=== PATIENT | female | born 1975 | race African-American/Black ===

== ENCOUNTER 2016-05-20 17:50 | Emergency (ER) | payer OTHER ==
[~2016-05-20 17:50] MED LIST: ALPRAZOLAM0.5 M3; BENTYL20 M1 PO; BUSPIRONE HCL10 M1; CLONAZEPAM0.5 MG; DECADRON2 MG PO; FIORICET 325 MG1 TAB PO; IBUPROFEN800 M1 PO; IBUPROFEN800 MG PO; IMITREX20 M1 NAS; IMITREX6 MG/0.52; IRON SUPPLEMEN325 MG PO; LEVSIN-SL0.125 MG SL; MIRENA1 EACH; NAPROXEN SODIU550 M1 PO; NEXIUM 40MG40 MG PO; ONDANSETRON HCL4 MG PO; ONDANSETRON HYDR4 MG PO; OXYCODONE HCL10 M2 PO; OXYCODONE HCL15 M1 PO; OXYCODONE HCL20 M1 PO; OXYCONTIN15 M1 PO; OXYCONTIN20 M1 PO; PERCOCET 325 MG1 TA2 PO; PHENERGAN25 M2 PO; PHENERGAN25 MG PR; POLYETHYLENE G255 GM PO; REGLAN10 M1 PO; REGLAN10 MG PO; TOPIRAMATE25 MG PO; ULTRAM(MONOGRAP50 MG PO; VALIUM5 M1 PO; VICODIN 300 MG-1 TAB PO; ZOFRAN 4 MG TABL4 MG PO
[2016-05-20 18:11] VITALS: BP 112/75
--- NOTE | 2016-05-20 19:08 | ED HEADACHE COMPLAINT ---
History of Present Illness General Chief Complaint: General Adult Stated Complaint: BILLS, LEFT SIDED EAR AND JAW PAIN, X 5 DAYS Source: patient Exam Limitations: no limitations Vital Signs & Intake/Output Vital Signs & Intake/Output Vital Signs Date Time Temp Pulse Resp B/P Pulse O2 O2 Flow FiO2 Ox Delivery Rate 05/20 1908 97.3 05/20 1811 93 20 112/75 96 Room Air ED Intake and Output 05/21 0000 05/20 1200 Intake Total 50 Output Total Balance 50 Intake, Oral 50 Allergies Coded Allergies: famotidine (Intermediate, HEART RACING, HIVES 08/10/15) Reconcile Medications Ferrous Sulfate 325 MG (65 MG IRON) TABLET 1 TAB PO DAILY SUPPLEMENT ( Reported) Gabapentin (Neurontin) 300 MG CAPSULE 2 CAP PO TID NEURALGIA Ibuprofen 800 MG TABLET 1 TAB PO TID PRN PAIN (Reported) Levonorgestrel (Mirena) 1 EACH IUD CONTROL (Reported) Methylprednisolone. (Medrol) 4 MG TAB.DS.PK 1 DP PO AD MIGRAINE 6 on day 1 then reduce by one tablet daily until gone Oxycodone HCl 15 MG TABLET 1 TAB PO TID PRN PAIN (Reported) Oxycodone HCl (Oxycontin) 20 MG TAB.ER.12H 1 TAB PO BID PAIN (Reported) Polyethylene Glycol 3350 255 GM POWDER 17 GM PO DAILY GI (Reported) Triage Note: PER PT L EAR PAIN SINCE SUNDAY NOW WITH BILLS TO L ORIENTAL ORTHODOX X 22 DAYS. CONSISTENT. TOOK SCHEDULED OXYCODONE FOR CHRONIC BILLS AT 12 NOON. WITHOUT EFFECT. LMP ON [facility] Triage Nurses Notes Reviewed? yes Onset: Gradual Duration: day(s):, waxing and waning Timing: recent history Quality/Severity: moderate Head Injury Location: left sided of head Modifying Factors: Improves With: rest. Worsens With: movement. Associated Symptoms: nausea/vomiting : No Patient currently breastfeeds: No HPI: 41-year-old woman presents with left-sided headache consistent with her prior migraines. She's had these symptoms for the past 5 days. She is tried her usual symptomatic measures without success. She has no fever chills. She notes mild nausea without vomiting. She has no focal weakness. She is otherwise well and has no other concerns. Past History Travel History Traveled to [place] past 21 day No Medical History Any Pertinent Medical History? 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 No Review of Systems Review of Systems Constitutional: Reports: no symptoms. Eyes: Reports: no symptoms. Ears, Nose, Throat, Mouth: Reports: no symptoms. Respiratory: Reports: no symptoms. Cardiovascular: Reports: no symptoms. Gastrointestinal/Abdominal: Reports: no symptoms. Genitourinary: Reports: no symptoms. Musculoskeletal: Reports: no symptoms. Skin: Reports: no symptoms. Neurological/Psychological: Reports: no symptoms. Hematologic/Endocrine: Reports: no symptoms. Endocrine: Reports: no symptoms. Immunologic/Allergic: Reports: no symptoms. All Other Systems: Reviewed and Negative Physical Exam Physical Exam General Appearance: well developed/nourished Head: atraumatic, normal appearance, mild tenderness to palpation along the left scalp musculature Eyes: Bilateral: normal appearance, PERRL, EOMI. Ears, Nose, Throat: normal pharynx, normal ENT inspection Neck: normal inspection, supple, full range of motion Respiratory: normal breath sounds, chest non-tender, no respiratory distress, quiet respiration, lungs clear Cardiovascular: regular rate/rhythm Gastrointestinal: normal bowel sounds, soft, non-tender, no organomegaly Back: normal inspection Extremities: normal inspection Psychiatric: awake, alert, oriented x 3 Cranial Nerves: normal hearing, normal speech, PERRL Coordination/Gait: normal gait Motor/Sensory: no motor/sensory deficits Reflexes: 1+: bicep (R), bicep (L). Skin: intact, normal color, warm/dry Core Measures Severe Sepsis Present: No Septic Shock Present: No Progress Differential Diagnosis: cluster BILLS, migraine BILLS, musculoskeletal pain, tension BILLS Plan of Care: pt given supportive medications and will return if not better. Departure Departure Disposition: HOME OR SELF CARE Condition: Stable Clinical Impression Primary Impression: Migraine headache Referrals: PATIENT HAS NO PRIMARY CARE DR (PCP/Family) Departure Forms: Customer Survey General Discharge Information Prescriptions: Current Visit Scripts Methylprednisolone. (Medrol) 1 DP PO AD #1 DP 6 on day 1 then reduce by one tablet daily until gone Gabapentin (Neurontin) 2 CAP PO TID #90 CAP
[2016-05-20] MEDS ORDERED: MEDROL4 M2 PO (19:19)
[2016-05-20] MEDS ORDERED: NEURONTIN300 M1 PO (19:19)
[2016-05-20] MEDS ORDERED: FERROUS SULFAT325 M3 PO (19:36)
== END 2016-05-20 19:44 ==
LOC: ERH 17:50
DX: G43.909 Migraine, unspecified, not intractable, without status migrainosus (principal)
CPT/HCPCS: 96372; J1885

== ENCOUNTER 2016-07-09 20:41 | Emergency (ER) | payer OTHER ==
[~2016-07-09] VITALS: Ht 154.9 cm; Wt 88.5 kg
[~2016-07-09 20:41] MED LIST changes: +FERROUS SULFAT325 M3 PO; +MEDROL4 M2 PO; +NEURONTIN300 M1 PO
[2016-07-09 21:44] LABS: ABSOLUTE BASOPHIL COUNT 0 /CUMM (0.0-0.2); ABSOLUTE EOSINOPHIL COUNT 0 /CUMM (0.0-0.7); ABSOLUTE GRANULOCYTE CT 9.9 /CUMM (1.4-6.5); ABSOLUTE MONOCYTE COUNT 0.1 /CUMM (0.10-0.60); BASOPHIL % 0.1 % (0.0-2.0); EOSINOPHIL % 0 % (0-5); GRANULOCYTE % 89.6 % (42.2-75.2); HEMATOCRIT 34.4 % (37-47); MEAN CORPUSCULAR HGB 25.1 PG (27.0-31.0); MEAN CORPUSCULAR HGB CONC 31.8 G/DL (33.0-37.0); MEAN CORPUSCULAR VOLUME 78.9 FL (81.0-99.0); MEAN PLATELET VOLUME 9.2 FL (7.4-10.4); PLATELET COUNT 271 /CUMM (130-400); RBC DISTRIBUTION WIDTH 14.8 % (11.5-14.5); RED BLOOD CELL CT 4.36 /CUMM (4.20-5.40)
--- NOTE | 2016-07-09 21:48 | ED GENERAL ADULT ---
History of Present Illness General Chief Complaint: General Adult Stated Complaint: BILLS, FACIAL PAIN, ABD. PAIN,VOMITING SINCE YEST Source: patient, family Exam Limitations: no limitations Vital Signs & Intake/Output Vital Signs & Intake/Output Vital Signs Date Time Temp Pulse Resp B/P B/P Pulse O2 O2 Flow FiO2 Mean Ox Delivery Rate 07/10 0009 97.1 89 18 132/86 98 Room Air 07/09 2140 99.5 82 20 138/79 100 Room Air ED Intake and Output 07/10 0000 07/09 1200 Intake Total Output Total Balance Patient 195 lb Weight Weight Reported by Patient Measurement Method Allergies Coded Allergies: famotidine (Intermediate, HEART RACING, HIVES 07/09/16) Reconcile Medications Ferrous Sulfate 325 MG (65 MG IRON) TABLET 1 TAB PO DAILY SUPPLEMENT ( Reported) Gabapentin (Neurontin) 300 MG CAPSULE 2 CAP PO TID NEURALGIA Ibuprofen 800 MG TABLET 1 TAB PO TID PRN PAIN (Reported) Levonorgestrel (Mirena) 1 EACH IUD CONTROL (Reported) Methylprednisolone. (Medrol) 4 MG TAB.DS.PK 1 DP PO AD MIGRAINE 6 on day 1 then reduce by one tablet daily until gone Ondansetron (Zofran Odt) 4 MG TAB.RAPDIS 1 TAB SL TID PRN nausea Oxycodone HCl 15 MG TABLET 1 TAB PO TID PRN PAIN (Reported) Oxycodone HCl (Oxycontin) 20 MG TAB.ER.12H 1 TAB PO BID PAIN (Reported) Oxycodone HCl 15 MG TABLET 1 TAB PO 4XDP PRN pain four... [id number] Polyethylene Glycol 3350 255 GM POWDER 17 GM PO DAILY GI (Reported) Triage Note: TRIAGE: PT TO ER C/C PAIN TO HEAD, FACE AND ABD WELL N/V. ONSET YESTERDAY. STATES HX OF MIGRAINES AND TMJ, TAKES DAILY PAIN MEDS FOR SAME AND HAS BEEN UNABLE TO KEEP THE PAIN MEDS DOWN SO QUESTIONS IF SOME OF THE S/S MIGHT BE WITHDRAWAL RELATED. PT HAD BLOOD WORK DONE IN [place] PRIOR TO TRIAGE. PT ACTIVELY V[facility]ITING IN [facility] AT PRESENT. DR HAAS OVER TO EVALUATE PATIENT. Triage Nurses Notes Reviewed? yes Onset: Abrupt Duration: day(s):, waxing and waning Timing: recent history Injury Environment: home Severity: moderate Modifying Factors: Improves With: rest. Associated Symptoms: head ache, left facial pain : No Patient currently breastfeeds: No HPI: 41yo, h/o chronic pain, headache, right sided numbness, for the past 2 days, presents with right sided headache, "and then I started vomiting and then I couldn't keep my meds down." She notes that her headache is similar to her prior episodes of headache pain, which is associated with nausea and vomiting. She notes no diarrhea, chills, dyspnea, rashes, fever, sinus congestion, ear pain. Past History Travel History Traveled to [place] past 21 day No Medical History Any Pertinent Medical History? 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 No Review of Systems Review of Systems Constitutional: Reports: no symptoms. EENTM: Reports: no symptoms. Respiratory: Reports: no symptoms. Cardiovascular: Reports: no symptoms. GI: Reports: no symptoms. Genitourinary: Reports: no symptoms. Musculoskeletal: Reports: no symptoms. Skin: Reports: no symptoms. Neurological/Psychological: Reports: no symptoms. Hematologic/Endocrine: Reports: no symptoms. Immunologic/Allergic: Reports: no symptoms. All Other Systems: Reviewed and Negative Physical Exam Physical Exam General Appearance: well developed/nourished, mild distress Head: atraumatic, normal appearance, right sided facial tenderness to light touch, no swelling, no deformity. Eyes: Bilateral: normal appearance, PERRL, EOMI. Ears, Nose, Throat: normal pharynx, normal ENT inspection Neck: normal inspection, supple, full range of motion Respiratory: normal breath sounds, chest non-tender, no respiratory distress, quiet respiration, lungs clear Cardiovascular: regular rate/rhythm Gastrointestinal: normal bowel sounds, soft, non-tender, no organomegaly Back: normal inspection, normal range of motion Extremities: normal inspection Neurologic/Psych: no motor/sensory deficits, awake, alert, oriented x 3 Reflexes: 1+: bicep (R), bicep (L), knee (R), knee (L). Skin: intact, normal color, warm/dry Core Measures ACS in differential dx? No CVA/TIA Diagnosis: No Severe Sepsis Present: No Septic Shock Present: No Progress Differential Diagnoses I considered the following diagnoses in my evaluation of the patient: migraine, viral syndrome, medication withdrawal, vs other. Plan of Care: Orders Procedure Date/time Status LIPASE 07/09 2105 Complete HEPATIC FUNCTION PANEL 07/09 2105 Complete HUMAN BETA HCG SCREEN 07/09 2105 Complete CBC WITHOUT DIFFERENTIAL 07/09 2105 Complete BASIC METABOLIC PANEL 07/09 2105 Complete AMYLASE 07/09 2105 Complete Laboratory Tests 07/09/162134: Anion Gap 14, Estimated GFR > 60, BUN/Creatinine Ratio 15.7, Glucose 117 H, Calcium 9.5, Total Bilirubin 0.4, Direct Bilirubin 0.3, AST 22, ALT 23, Alkaline Phosphatase 92, Total Protein 8.0, Albumin 4.2, Amylase 83, Lipase 141, Total Beta HCG NEGATIVE, CBC w Diff NO MAN DIFF REQ, RBC 4.36, MCV 78.9 L, MCH 25.1 L, RDW 14.8 H, MPV 9.2, Gran % 89.6 H, Lymphocytes % 8.9 L, Monocytes % 1.4 L, Eosinophils % 0, Basophils % 0.1, Absolute Granulocytes 9.9 H, Absolute Lymphocytes 1.0 L, Absolute Monocytes 0.1 L, Absolute Eosinophils 0, Absolute Basophils 0, PUBS MCHC 31.8 L 07/09/162105: Urine Color Cancelled, Urine Clarity Cancelled, Urine pH Cancelled, Ur Specific [place] Cancelled, Urine Protein Cancelled, Urine Ketones Cancelled, Urine Nitrite Cancelled, Urine Bilirubin Cancelled, Urine Urobilinogen Cancelled, Ur Leukocyte Esterase Cancelled, Ur Microscopic Cancelled, Urine Hemoglobin Cancelled, Urine Glucose Cancelled Initial ED EKG: normal axis, normal intervals, normal p-waves, normal QRS complex, normal sinus rhythm Departure Departure Disposition: HOME OR SELF CARE Condition: Stable Clinical Impression Primary Impression: Medication withdrawal Secondary Impressions: Chronic pain, Headache, Vomiting Referrals: PATIENT HAS NO PRIMARY CARE DR (PCP/Family) Departure Forms: Customer Survey General Discharge Information Prescriptions: Current Visit Scripts Oxycodone HCl 1 TAB PO 4XDP PRN pain #4 TAB four... [id number] Ondansetron (Zofran Odt) 1 TAB SL TID PRN nausea #10 TAB Ref 1 Comments 07/10/16, 0:12... pt feeling better after dilaudid 2mg im x 2 along with other supportive medications. pt with benign labs, safe for discharge. Critical Care Note Critical Care Note Critical Care Time: non-applicable
[2016-07-09] MEDS ORDERED: ZOFRAN ODT4 M1 SL (23:54)
[2016-07-09] MEDS ORDERED: OXYCODONE HCL15 M1 PO (23:54)
[2016-07-10 00:09] VITALS: BP 132/86
[2016-07-11] MEDS ORDERED: NEXIUM40 M1 PO (20:24)
[2016-07-11] MEDS ORDERED: OXYCONTIN30 M1 PO (20:24)
[2016-07-11] MEDS ORDERED: SUMATRIPTA6 MG/0.52 INJ (20:25)
== END 2016-07-10 00:15 ==
LOC: ERH 20:41
PROVIDERS: Pediatrics
DX: F19.20 Other psychoactive substance dependence, uncomplicated (principal); G89.29 Other chronic pain; R51 Headache; R11.10 Vomiting, unspecified
CPT/HCPCS: 96372; J2405

== ENCOUNTER 2016-07-11 18:48 | Emergency (ER) | payer OTHER ==
[~2016-07-11 18:48] MED LIST changes: +ZOFRAN ODT4 M1 SL
--- NOTE | 2016-07-11 19:31 | ED HEADACHE COMPLAINT ---
History of Present Illness General Chief Complaint: General Adult Stated Complaint: PT IS HAVING FACE PAIN AND VOMITING Source: patient, family, old records Exam Limitations: no limitations Vital Signs & Intake/Output Vital Signs & Intake/Output Vital Signs Date Time Temp Pulse Resp B/P B/P Pulse O2 O2 Flow FiO2 Mean Ox Delivery Rate 07/11 1857 98.0 88 22 140/100 Allergies Coded Allergies: famotidine (Intermediate, HEART RACING, HIVES 07/09/16) Reconcile Medications Esomeprazole (Nexium) 40 MG CAPSULE.DR 1 CAP PO DAILY GI (Reported) Ferrous Sulfate 325 MG (65 MG IRON) TABLET 1 TAB PO DAILY SUPPLEMENT ( Reported) Gabapentin (Neurontin) 300 MG CAPSULE 2 CAP PO TID NEURALGIA Ibuprofen 800 MG TABLET 1 TAB PO TID PRN PAIN (Reported) Levonorgestrel (Mirena) 1 EACH IUD CONTROL (Reported) Ondansetron (Zofran Odt) 4 MG TAB.RAPDIS 1 TAB SL TID PRN nausea Oxycodone HCl 15 MG TABLET 1 TAB PO TID PRN PAIN (Reported) Oxycodone HCl (Oxycontin) 30 MG TAB.ER.12H 1 TAB PO BID PAIN (Reported) Polyethylene Glycol 3350 255 GM POWDER 17 GM PO DAILY GI (Reported) Sumatriptan Succinate 6 MG/0.5 ML PEN.INJCTR 6 MG INJ AD PRN MIGRAINES ( Reported) Triage Note: PER PT SEEN ON SUNDAY FOR BILLS/FACEPAIN AND VOMITING SEEN BY PMD TODAY GOT NERVE BLOCK BUT STILL VOMITING UNABLE TO TAKE MY CHRONIC PAIN MEDS ? WITHDRAWAL. Triage Nurses Notes Reviewed? yes : No Patient currently breastfeeds: No HPI: Patient suffers from severe, intense migraines. Patient saw her doctor today and had an injection to help her chronic headaches. Patient is still experiencing severe pain to both of her ureters that radiates down into her neck. Patient states that her pain is usually in her head, ears and neck. Patient states that the injection that she got earlier today at her doctor's office helped her headache however she is still experiencing that the ear and neck pain. The pain is throbbing in nature and is constant. It radiates as noted above. The pain is 10 out of 10. Patient states that the only thing that helps is when she comes to the emergency room and gets Dilaudid, Toradol and an antiemetic. Positive nausea vomiting. No photophobia. Past History Travel History Traveled to [place] past 21 day No Medical History Any Pertinent Medical History? 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 No Review of Systems Review of Systems Constitutional: Reports: no symptoms. Eyes: Reports: no symptoms. Ears, Nose, Throat, Mouth: Reports: see HPI, ear pain. Respiratory: Reports: no symptoms. Cardiovascular: Reports: no symptoms. Gastrointestinal/Abdominal: Reports: see HPI, nausea, vomiting. Genitourinary: Reports: no symptoms. Musculoskeletal: Reports: no symptoms. Skin: Reports: no symptoms. Neurological/Psychological: Reports: see HPI. Hematologic/Endocrine: Reports: no symptoms. Endocrine: Reports: no symptoms. Immunologic/Allergic: Reports: no symptoms. All Other Systems: Reviewed and Negative Physical Exam Physical Exam General Appearance: well developed/nourished, alert, awake, moderate distress Head: atraumatic, normal appearance Eyes: Bilateral: PERRL, EOMI. Ears, Nose, Throat: normal pharynx, normal ENT inspection, hearing grossly normal Neck: normal inspection, supple, full range of motion Respiratory: normal breath sounds, chest non-tender, no respiratory distress, lungs clear Cardiovascular: regular rate/rhythm, normal peripheral pulses Gastrointestinal: normal bowel sounds, soft, non-tender, no organomegaly Back: normal inspection, normal range of motion Extremities: normal inspection, normal capillary refill, normal range of motion, no edema Psychiatric: awake, alert, oriented x 3 Cranial Nerves: normal hearing, normal speech, PERRL Coordination/Gait: normal gait Motor/Sensory: no motor/sensory deficits Skin: intact, normal color, warm/dry Core Measures Severe Sepsis Present: No Septic Shock Present: No Progress Differential Diagnosis: migraine BILLS, musculoskeletal pain, tension BILLS Plan of Care: Pain control and antiemetics Departure Departure Disposition: HOME OR SELF CARE Condition: Stable Clinical Impression Primary Impression: Migraine Referrals: PATIENT HAS NO PRIMARY CARE DR (PCP/Family) Additional Instructions: RETURN IF SYMPTOMS WORSEN OR FOR ANY CONCERNS Departure Forms: Customer Survey General Discharge Information
[2016-07-11] MEDS ORDERED: OXYCONTIN30 M1 PO (20:24)
[2016-07-11] MEDS ORDERED: NEXIUM40 M1 PO (20:24)
[2016-07-11] MEDS ORDERED: SUMATRIPTA6 MG/0.52 INJ (20:25)
[2016-07-11 22:00] VITALS: BP 132/87
== END 2016-07-11 22:00 ==
LOC: ERH 18:48
DX: G43.909 Migraine, unspecified, not intractable, without status migrainosus (principal)
CPT/HCPCS: 96374; 96375; 96376; J1885; J2765

== ENCOUNTER 2017-10-20 02:55 | Emergency (ER) | payer OTHER ==
[~2017-10-20] VITALS: Ht 154.9 cm; Wt 85.3 kg
[~2017-10-20 02:55] MED LIST changes: +NEXIUM40 M1 PO; +OXYCODONE HCL20 M2 PO; +OXYCONTIN30 M1 PO; +SUMATRIPTA6 MG/0.52 INJ
--- NOTE | 2017-10-20 03:24 | ED GENERAL ADULT ---
History of Present Illness General Chief Complaint: Abdominal Pain/Flank Pain Stated Complaint: PT C/O ABD PAIN +N/V/D Source: patient Exam Limitations: no limitations Vital Signs & Intake/Output Vital Signs & Intake/Output Vital Signs Date Time Temp Pulse Resp B/P B/P Pulse O2 O2 Flow FiO2 Mean Ox Delivery Rate 10/20 0800 98.3 84 18 128/74 99 Room Air 10/20 0635 70 18 135/63 99 Room Air 10/20 0409 Room Air 10/20 0345 98.2 90 18 138/84 98 Allergies Coded Allergies: famotidine (Intermediate, HEART RACING, HIVES 07/09/16) Reconcile Medications Gabapentin (Neurontin) 300 MG CAPSULE 2 CAP PO TID NEURALGIA Ibuprofen 800 MG TABLET 1 TAB PO TID PRN PAIN (Reported) Levonorgestrel (Mirena) 1 EACH IUD CONTROL (Reported) Ondansetron (Zofran Odt) 4 MG TAB.RAPDIS 1 TAB SL TID PRN nausea Oxycodone HCl 20 MG TABLET 1 TAB PO 4 TIMES/DAY PAIN (Reported) Sumatriptan Succinate 6 MG/0.5 ML PEN.INJCTR 6 MG INJ AD PRN MIGRAINES ( Reported) Triage Nurses Notes Reviewed? yes Onset: Abrupt Duration: hour(s): Timing: recent history HPI: 10/20/17 3:48 AM 42-year-old female presents to the emergency department for abdominal pain and vomiting. She said she recently had a tooth extracted and has a history of migraine headaches and now she's been vomiting and so she can't take her pain medication. Past History Travel History Traveled to [place] past 21 day No Medical History Any Pertinent Medical History? 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 No Review of Systems Review of Systems Constitutional: Denies: fever. EENTM: Denies: visual changes. Respiratory: Denies: short of breath. Cardiovascular: Denies: chest pain. GI: Denies: abdominal pain. Genitourinary: Reports: no symptoms. Musculoskeletal: Reports: no symptoms. Skin: Reports: no symptoms. Neurological/Psychological: Reports: see HPI. Hematologic/Endocrine: Reports: no symptoms. Immunologic/Allergic: Reports: no symptoms. Physical Exam Physical Exam General Appearance: well developed/nourished, alert, awake, anxious, mild distress Head: atraumatic, normal appearance Eyes: Bilateral: normal appearance, PERRL, EOMI. Ears, Nose, Throat: normal pharynx, normal ENT inspection, hearing grossly normal Neck: normal inspection, supple Respiratory: normal breath sounds, chest non-tender, no respiratory distress Cardiovascular: regular rate/rhythm Peripheral Pulses: 4+ radial (R), 4+ radial (L) Gastrointestinal: soft, non-tender Back: normal range of motion Extremities: normal inspection Neurologic/Psych: awake, alert, oriented x 3 Skin: intact, normal color, warm/dry Core Measures ACS in differential dx? No CVA/TIA Diagnosis: No Sepsis Present: No Sepsis Focused Exam Completed? No Progress Differential Diagnoses I considered the following diagnoses in my evaluation of the patient: [Dental abscess, trigeminal neuralgia, migraine, dental caries, tension headache] Plan of Care: Orders Procedure Date/time Status HUMAN BETA HCG SCREEN 10/20 428 Complete COMPREHENSIVE METABOLIC PANEL 10/20 428 Complete CBC WITHOUT DIFFERENTIAL 10/20 428 Complete Laboratory Tests 10/20/17 0520: Anion Gap 10, Estimated GFR > 60, BUN/Creatinine Ratio 15.0, Glucose 130 H, Calcium 9.6, Total Bilirubin 0.4, AST 19, ALT 19, Alkaline Phosphatase 86, Total Protein 8.4 H, Albumin 4.4, Globulin 4.0, Albumin/Globulin Ratio 1.1, Total Beta HCG NEGATIVE 10/20/17 0440: CBC w Diff MAN DIFF ORDERED, RBC 3.83 L, MCV 78.9 L, MCH 26.0 L, MCHC 33.0, RDW 15.2 H, MPV 8.6, Gran % 86.0 H, Lymphocytes % 10.6 L, Monocytes % 3.3, Eosinophils % 0.1, Basophils % 0, Absolute Granulocytes 9.8 H, Absolute Lymphocytes 1.2, Absolute Monocytes 0.4, Absolute Eosinophils 0, Absolute Basophils 0, Platelet Estimate ADEQUATE, Hypochromic-Microcytic 1+ Initial ED EKG: none Departure Departure Disposition: HOME OR SELF CARE Condition: Stable Clinical Impression Primary Impression: Facial pain syndrome Referrals: Patient Has No Primary Care Dr (PCP/Family) Departure Forms: Customer Survey General Discharge Information Comments Patient's labs are unremarkable. She received IV fluids and IV morphine for pain. 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 Zofran was given for nausea and she was tolerating by mouth. She will go home and take her usual medications and follow-up with her doctor this week. Critical Care Note Critical Care Note Critical Care Time: non-applicable
[2017-10-20 04:56] LABS: ABSOLUTE BASOPHIL COUNT 0 /CUMM (0.0-0.2); ABSOLUTE EOSINOPHIL COUNT 0 /CUMM (0.0-0.7); ABSOLUTE GRANULOCYTE CT 9.8 /CUMM (1.4-6.5); ABSOLUTE LYMPH COUNT 1.2 /CUMM (1.2-3.4); ABSOLUTE MONOCYTE COUNT 0.4 /CUMM (0.10-0.60); BASOPHIL % 0 % (0.0-2.0); EOSINOPHIL % 0.1 % (0-5); HEMATOCRIT 30.3 % (37-47); MEAN CORPUSCULAR VOLUME 78.9 FL (81.0-99.0); MEAN PLATELET VOLUME 8.6 FL (7.4-10.4); PLATELET COUNT 326 /CUMM (130-400); RBC DISTRIBUTION WIDTH 15.2 % (11.5-14.5); RED BLOOD CELL CT 3.83 /CUMM (4.20-5.40); WHITE BLOOD CELL COUNT 11.4 /CUMM (4.8-10.8)
[2017-10-20 08:00] VITALS: BP 128/74
== END 2017-10-20 08:01 ==
LOC: ERH 02:55
PROVIDERS: Emergency Medicine
DX: R51 Headache (principal)
CPT/HCPCS: 96361; 96374; 96375; J1885; J2405

== ENCOUNTER 2017-11-11 02:04 | Emergency (ER) | payer OTHER ==
[~2017-11-11] VITALS: Ht 154.9 cm; Wt 83.9 kg
--- NOTE | 2017-11-11 04:31 | ED GENERAL ADULT ---
History of Present Illness General Chief Complaint: Nausea, Vomiting, Diarrhea Stated Complaint: PT C/O N/V Source: patient, old records Exam Limitations: no limitations Vital Signs & Intake/Output Vital Signs & Intake/Output Vital Signs Date Time Temp Pulse Resp B/P B/P Pulse O2 O2 Flow FiO2 Mean Ox Delivery Rate 11/11 0226 99.0 86 18 147/84 97 Room Air Allergies Coded Allergies: famotidine (Intermediate, HEART RACING, HIVES 07/09/16) Reconcile Medications Gabapentin (Neurontin) 300 MG CAPSULE 2 CAP PO TID NEURALGIA Ibuprofen 800 MG TABLET 1 TAB PO TID PRN PAIN (Reported) Levonorgestrel (Mirena) 1 EACH IUD CONTROL (Reported) Oxycodone HCl 20 MG TABLET 1 TAB PO 4 TIMES/DAY PAIN (Reported) Sumatriptan Succinate 6 MG/0.5 ML PEN.INJCTR 6 MG INJ AD PRN MIGRAINES ( Reported) Triage Note: PT TO ED C/O +N/V "I CAN'T KEEP MY PAIN MEDS DOWN" HAD RT KNEE ARTHROSCOPIC SX A WEEK AGO. HAS BEEN TAKING 20 MG OXYCODONE Q6H PRN. +N/V TODAY R/T MIGRAINES. PMH OF MIGRAINES, STATES IS TYPICAL MIGRAINE FOR HER Triage Nurses Notes Reviewed? yes : No Patient currently breastfeeds: No HPI: Patient presents for evaluation of intermittent sharp abdominal pain in the bilateral lower quadrants that began this morning. Patient denies diarrhea dysuria fever or cold symptoms or rashes. In addition she states she is having a right-sided headache, typical for her, along with right knee pain status post surgery. She states she has been unable to take her usual medicines for her headache and her knee pain secondary to nausea and vomiting. Past History Travel History Traveled to [place] past 21 day No Medical History Any Pertinent Medical History? see below for history Neurological: migraine, ATYPICAL FACIAL PAIN?TMJ EENT: NONE Cardiovascular: NONE Respiratory: NONE Gastrointestinal: NONE Hepatic: NONE Renal: NONE Musculoskeletal: NONE Psychiatric: NONE Endocrine: NONE Blood Disorders: NONE Cancer(s): NONE [employer] ME[employer]/Reproductive: NONE Tetanus Vaccine: 09/08/12 Surgical History Surgical History: non-contributory Psychosocial History What is your primary language Dominican Tobacco Use: Never used ETOH Use: denies use Illicit Drug Use: denies illicit drug use Family History Hx Contributory? No Review of Systems Review of Systems Constitutional: Reports: no symptoms. EENTM: Reports: no symptoms. Respiratory: Reports: no symptoms. Cardiovascular: Reports: no symptoms. GI: Reports: see HPI. Genitourinary: Reports: no symptoms. Musculoskeletal: Reports: no symptoms. Skin: Reports: no symptoms. Neurological/Psychological: Reports: see HPI. Hematologic/Endocrine: Reports: no symptoms. Immunologic/Allergic: Reports: no symptoms. All Other Systems: Reviewed and Negative Physical Exam Physical Exam General Appearance: SEE BELOW Comments: Gen.: Well-nourished, well-developed, no acute respiratory distress. Head: Normocephalic, atraumatic. Eyes: Normal inspection bilaterally Ears: Normal inspection bilaterally Nose: Normal inspection Throat/mouth : Moist mucosa Neck: Supple, full range of motion, no goiter Lungs: Quiet respirations Back: Normal range of motion Extremities: Normal range of motion grossly, no cyanosis clubbing or edema of the upper extremities Neurologic: Cranial nerves grossly intact, speech is clear Skin: warm and dry Psychiatric: Calm, cooperative, no apparent delusions or hallucinations Core Measures ACS in differential dx? No CVA/TIA Diagnosis: No Sepsis Present: No Sepsis Focused Exam Completed? No Progress Differential Diagnoses I considered the following diagnoses in my evaluation of the patient: Migraine headache, postoperative right knee pain, viral syndrome, gastroenteritis Plan of Care: Current Medications Sig/Tara Start time Last Medication Dose Stop Time Status Admin Hydromorphone HCl 1 MG ONCE ONE 11/11 429 UNVr (Dilaudid) 11/11 430 Ketorolac 30 MG ONCE ONE 11/11 429 UNVr Tromethamine 11/11 430 (Toradol) Metoclopramide HCl 20 MG ONCE ONE 11/11 429 UNVr (Reglan) 11/11 430 Promethazine HCl 25 MG ONCE ONE 11/11 429 UNVr (Phenergen) 11/11 430 Sodium Chloride 1,000 ML BOLUS ONE 11/11 429 UNVr (Normal Saline 0.9%) 11/11 528 Initial ED EKG: none Departure Departure Disposition: HOME OR SELF CARE Condition: Stable Clinical Impression Primary Impression: Migraine headache Qualifiers: Migraine type: unspecified Status migrainosus presence: with status migrainosus Intractability: not intractable Qualified Code: G43.901 - Migraine, unspecified, not intractable, with status migrainosus Secondary Impressions: Postoperative pain of right knee Referrals: Patient Has No Primary Care Dr (PCP/Family) Additional Instructions: When he returned home tried to get some sleep. Follow-up with your primary care physician for reevaluation on Sunday. Follow-up with your knee surgeon as previously scheduled. Return if any concerns or sudden worsening. Departure Forms: Customer Survey General Discharge Information Critical Care Note Critical Care Note Critical Care Time: non-applicable
[2017-11-11 05:50] VITALS: BP 130/78
== END 2017-11-11 06:25 ==
LOC: ERH 02:04
DX: G43.909 Migraine, unspecified, not intractable, without status migrainosus (principal); M25.561 Pain in right knee
CPT/HCPCS: 96361; 96372; 96374; 96375; J2550; J2765